=== PATIENT | male | born 1990 | race Caucasian/White ===

== ENCOUNTER 2017-08-08 13:26 | Emergency (ER) | payer SELFPAY ==
[~2017-08-08] VITALS: Ht 182.9 cm; Wt 72.6 kg
[2017-08-08 13:29] VITALS: BP 124/71
[2017-08-08] MEDS ORDERED: TDAP [DIPH/PERTUSSIS/TET] 0.5 ML VIAL IM ONE ×2 (14:28→14:30)
== END 2017-08-08 14:43 | disposition home or self-care (01) ==
LOC: ER 13:30
DX: S51.812A Laceration without foreign body of left forearm, initial encounter (principal); J45.909 Unspecified asthma, uncomplicated; W26.8XXA Contact with other sharp object(s), not elsewhere classified, initial encounter; Y93.89 Activity, other specified; Y92.89 Other specified places as the place of occurrence of the external cause; Y99.8 Other external cause status
CPT/HCPCS: 73090; 90471; 90715; 99284; A4606; A6402; Z7610

== ENCOUNTER 2023-06-17 23:48 | Emergency (ER) | payer OTHER ==
[~2023-06-17] VITALS: Ht 182.9 cm; Wt 72.6 kg
[2023-06-18 00:44] LABS: BASOPHILS % (AUTO) 0.3 % (0.0-2.0); EOSINOPHILS # (AUTO) 0.4 K/uL (0.0-0.7); EOSINOPHILS % (AUTO) 5.6 % (0.0-6.0); HEMATOCRIT 41 % (39-51); HEMOGLOBIN 13.2 g/dL (13.5-17.5); LYMPHOCYTES # (AUTO) 1.7 K/uL (0.8-4.8); LYMPHOCYTES % (AUTO) 24.4 % (20.0-44.0); MEAN CORPUSCULAR HEMOGLOBIN 27 PG (26.0-33.0); MEAN CORPUSCULAR HGB CONC 33 g/dl (31.0-36.0); MEAN CORPUSCULAR VOLUME 83 fL (80-96); MONOCYTES # (AUTO) 0.6 K/uL (0.1-1.30); MONOCYTES % (AUTO) 8.8 % (2.0-12.0); NEUTROPHILS # (AUTO) 4.2 K/uL (1.8-8.9); NEUTROPHILS % (AUTO) 60.9 % (43.0-81.0); PLATELET COUNT (AUTO) 287 K/uL (150-450); RED BLOOD CELL COUNT(AUTO) 4.88 MIL/uL (4.5-6.0); RED CELL DISTRIBUTION WIDTH 13.9 % (11.5-15.0); WHITE BLOOD COUNT (AUTO) 6.8 K/uL (4.3-11.0)
[2023-06-18] MEDS ORDERED: ONDANSETRON HCL/PF 4 MG/2 ML VIAL ONE (00:44)
[2023-06-18] MEDS: MORPHINE SULFATE INJ 2 MG/ML DISP.SYRIN IV ONE (00:44)
[2023-06-18] MEDS: IV NS 0.9% 500 ML BAG IV ONE (00:44)
[2023-06-18] MEDS ORDERED: MORPHINE SULFATE INJ 2 MG/ML DISP.SYRIN ONE (00:44)
[2023-06-18] MEDS: ONDANSETRON HCL/PF 4 MG/2 ML VIAL IVP ONE (00:45)
[2023-06-18 01:12] LABS: CREATININE 1.2 mg/dL (0.6-1.3); POTASSIUM 3.9 mmol/L (3.5-5.1)
[2023-06-18 01:14] LABS: ALBUMIN 3.6 g/dL (3.4-5.0); BILIRUBIN,DIRECT 0.1 mg/dL (0.0-0.2); BILIRUBIN,TOTAL 0.3 mg/dL (0.2-1.0)
[2023-06-18] MEDS ORDERED: IBUP-1957 PO (01:31)
[2023-06-18 01:41] VITALS: BP 133/82; TEMP 98.4; O2SAT 98
== END 2023-06-18 01:42 | disposition home or self-care (01) ==
LOC: ER 23:52
DX: K40.90 Unilateral inguinal hernia, without obstruction or gangrene, not specified as recurrent (principal); J45.909 Unspecified asthma, uncomplicated
CPT/HCPCS: 99285; 74176; 96374; 96375; 85025; 80048; 83690; 80076; J2405; J7040; J2270; 36415

== ENCOUNTER 2025-01-04 09:33 | Emergency (ER) | payer OTHER ==
[~2025-01-04] VITALS: Ht 182.9 cm; Wt 77.1 kg
[~2025-01-04 09:33] MED LIST: IBUP-1957 PO
[2025-01-04 09:50] VITALS: BP 136/75; TEMP 97.8
[2025-01-04] MEDS ORDERED: CYCL5TAB PO (10:39)
[2025-01-04] MEDS ORDERED: IBUPROFEN 600 MG TABLET ONE (10:49)
[2025-01-04] MEDS ORDERED: CYCLOBENZAPRINE 10 MG TABLET ONE (10:49)
[2025-01-04] MEDS: CYCLOBENZAPRINE 10 MG TABLET PO ONE (10:52)
[2025-01-04] MEDS: IBUPROFEN 600 MG TABLET PO ONE (10:59)
[2025-01-04 11:31] VITALS: O2SAT 99
== END 2025-01-04 11:54 | disposition home or self-care (01) ==
LOC: ER 09:55
DX: M54.6 Pain in thoracic spine (principal); J45.909 Unspecified asthma, uncomplicated; Z79.1 Long term (current) use of non-steroidal anti-inflammatories (NSAID)
CPT/HCPCS: 71045-TC